=== PATIENT | female | born 1975 | race Caucasian/White ===

== ENCOUNTER 2022-12-27 05:08 | Emergency (ER) | payer OTHER ==
[~2022-12-27] VITALS: Ht 162.6 cm; Wt 81.0 kg
[2022-12-27 05:17] VITALS: BP 175/85
[2022-12-27 05:22] VITALS: BP 157/94
[2022-12-27] MEDS ORDERED: METHOTREXATE S2.5 MG PO (05:31)
[2022-12-27] MEDS ORDERED: LIPITOR20 M1 PO (05:32)
[2022-12-27] MEDS ORDERED: METFORMIN500 M2 PO (05:33)
[2022-12-27] MEDS ORDERED: D31000 UNIT PO (05:35)
[2022-12-27] MEDS ORDERED: FOLIC ACID1 MG PO (05:36)
[2022-12-27] MEDS ORDERED: PROPRANOLOL HCL40 MG PO (05:36)
[2022-12-27 06:08] LABS: BASO% 0.5 % (0-3); EOS% 2.6 % (0-8); HEMATOCRIT 42.5 % (37.0-47.0); HEMOGLOBIN 13.2 g/dl (12.0-16.0); IMMATURE GRANULOCYTES 0.2 % (0.0-5.0); MEAN CORPUSCULAR HGB 28.6 pG CALC (26.0-32.0); MEAN CORPUSCULAR HGB CONC 31.1 g/dL CAL (32.0-36.0); MONO% 6.4 % (2-13); NEUT# 4.39 thou/uL (2.00-7.15); NEUT% 50.3 % (42-76); RED BLOOD COUNT 4.62 mill/uL (4.20-5.60); RED CELL DISTRI WIDTH 15.6 % (11.5-15.5)
[2022-12-27 06:16] LABS: URINE BILIRUBIN - DIPSTICK NEGATIVE (NEGATIVE); URINE BLOOD DIPSTICK NEGATIVE (NEGATIVE); URINE COLOR YELLOW; URINE GLUCOSE - DIPSTICK NEGATIVE (NEGATIVE); URINE KETONE NEGATIVE (NEGATIVE); URINE PH 5.5 (4.5-8.0); URINE PROTEIN - DIPSTICK NEGATIVE (NEG-TRACE); URINE UROBILINOGEN - DIPSTICK 0.2 E.U./dL (0.2)
[2022-12-27 06:17] LABS: URINE LEUK ESTERASE SMALL (NEGATIVE); URINE NITRITE - DIPSTICK NEGATIVE (Negative)
[2022-12-27 06:26] LABS: URINE BACTERIA MANY hpf; URINE SQUAMOUS EPITHELIAL CELL FEW EPI/hpf (0-FEW)
[2022-12-27 06:40] VITALS: BP 159/121
[2022-12-27 06:41] LABS: ALBUMIN 4.5 g/dL (3.2-5.0); ALKALINE PHOSPHATASE 112 u/l (38-126); ANION GAP 17 (6-22 (CALC)); BILIRUBIN, TOTAL 0.3 mg/dL (0.02-1.3); BUN 13 mg/dL (7-17); BUN/CREATININE RATIO 17 (12-20 (CALC)); CARBON DIOXIDE 23 mmol/l (22-30); CHLORIDE 106 mmol/l (95-108); CREATININE 0.7 mg/dL (0.5-1.0); GFR FOR AFR.AMER. > 60 ML/MIN (>=60 (CALC)); GFR OTHER RACES > 60 ML/MIN (>=60 (CALC)); POTASSIUM 4.3 mmol/l (3.5-5.1); SGOT/AST 52 u/l (14-36); SODIUM 140 mmol/l (137-146); TOTAL PROTEIN 7.6 g/dL (6.3-8.2)
[2022-12-27 06:46] VITALS: BP 127/61
[2022-12-27 07:00] VITALS: BP 115/66
[2022-12-27 07:11] LABS: TSH, 3RD GENERATION 3.04 uIU/mL (0.47 - 4.68)
[2022-12-27 07:17] VITALS: BP 115/66
== END 2022-12-27 07:10 | disposition home or self-care (01) | DRG 305 ==
LOC: ED 05:08
PROVIDERS: Family Medicine
DX: I10 Essential (primary) hypertension (principal); R51.9 Headache, unspecified; E11.9 Type 2 diabetes mellitus without complications; Z79.84 Long term (current) use of oral hypoglycemic drugs; Z20.822 Contact with and (suspected) exposure to COVID-19